=== PATIENT | female | born 1955 | race Caucasian/White ===

== ENCOUNTER → 2024-06-10 16:01 | Outpatient (REF) | payer MEDICARE, SELFPAY | LOC: RAD 16:01 | PROVIDERS: ATTENDING PHYSICIAN Orthopaedic Surgery Hand Surgery; FAMILY PHYSICIAN Internal Medicine | DX: M19.011 Primary osteoarthritis, right shoulder (principal) | CPT/HCPCS: 73200 ==

== ENCOUNTER 2024-07-01 06:06 | Inpatient (IN) | payer MEDICARE, SELFPAY ==
[2024-06-15 14:40] VITALS: BMI 48.2
[2024-06-15 15:13] LABS: Hematocrit 37.7 % (37.0-47.0); Hemoglobin 13.1 g/dL (12.0-16.0); Mean Corp Hgb Conc. 34.7 g/dL (33.0-37.0); Mean Corpuscular Hgb 30.3 pg (27.0-31.0); Mean Corpuscular Volume 87.3 fL (81.0-99.0); Mean Platelet Volume 9.3 fL (7.4-10.4); Platelet Count 221 10^3/uL (130-400); Red Blood Cell Count 4.32 10^6/uL (4.20-5.40); Red Cell Dist. Width 14.2 % (11.5-14.5); White Blood Cell Count 8.5 10^3/uL (4.8-10.8)
[2024-06-15 15:56] LABS: ALT (SGPT) 22 U/L (0-35); AST (SGOT) 24 U/L (14-36); Albumin 4.4 g/dl (3.5-5.0); Alkaline Phosphatase 67 U/L (38-126); Blood Urea Nitrogen 16 mg/dl (7-17); Calcium 9.5 mg/dl (8.4-10.2); Carbon Dioxide 20 mmol/L (22-30); Chloride 106 mmol/L (98-107); Estimated Creatinine Clearance 70 ml/min; Glucose 90 mg/dl (70-99); Potassium 4.4 mmol/L (3.5-5.1); Sodium 141 mmol/L (135-145); Total Bilirubin 0.6 mg/dl (0.2-1.3); Total Protein 6.9 g/dl (6.3-8.2); eGFR > 60.00
[2024-06-25 10:47] VITALS: BMI 48.2
[2024-06-25 11:13] VITALS: BMI 48.2
[2024-07-01] VITALS (18 sets, daily range): BP systolic 108–161; BP diastolic 60–93; BMI 48.2
[2024-07-01 06:41] LABS: Glucose - Point of Care 112 mg/dl (70-99)
[2024-07-01] MEDS: TYLENOL 1000 MG PO (06:50)
[2024-07-01] MEDS: NORMOSOL-R/PLASMALYTE-A 1000 IV (06:51)
[2024-07-01] MEDS: TYLENOL 650 MG PO ×2 (11:31→15:18)
[2024-07-01] MEDS: NORMOSOL-R/PLASMALYTE-A IV (11:34)
[2024-07-01] MEDS: NSS 1000 IV (12:13)
--- NOTE | 2024-07-01 12:43 | PTCARENOTE ---
Report called to floor once at 1200 and again at 1230. Nurse unavailable to take report. Will call again at 1245. Will monitor patient.
--- NOTE | 2024-07-01 13:07 | W.PN.UPDATE ---
Update Note
Progress Note Update
R shoulder OA s/p R Reverse TSA w/ Dr Davis 07/01/24
DVT prophylaxis - ASA, b/l venous foot pumps
HTN - + parameters - monitor BP
Hypertrophic CM, pEF - will decrease hourly IVF rate to avoid fluid overload
H/o GI ulcers - No NSAIDs
- Start Protonix
Solitary kidney s/p R nephrectomy for Renal CA 1989 - minimize nephrotoxins
Neuropathy - consider Gabapentin or Lyrica
Hypercholesterolemia
Mild-mod MR
Ascending aortic aneurysm
H/o H Pylori
Multinodular goiter
Osteoporosis
Anxiety
Depression
--- NOTE | 2024-07-01 13:11 | PTCARENOTE ---
Pt arrived to [facility] from PACU/SDS s/p R reverse TSA. Pt AAOx3, IVF infusing, NV intact with mild sensation loss due to local block. R shoulder dressing with small amount of drainage. Pt states no pain at this time. Oriented to room and call modi,
call modi within reach, bed locked and in lowest position.
[2024-07-01] MEDS: PROTONIX PO (13:32)
[2024-07-01] MEDS: ANCEF 5 IV ×2 (15:17→23:11)
[2024-07-01] MEDS: ASPIRIN 325 MG PO (17:01)
[2024-07-01] MEDS: BACTROBAN 2% OINTMENT 1 APPLIC NASAL (20:49)
[2024-07-01] MEDS: CRESTOR 20 MG PO (20:50)
[2024-07-01] MEDS: TOPROL XL PO (20:53)
[2024-07-01] MEDS: TYLENOL PO ×2 (21:07→23:16)
[2024-07-01] MEDS: MELATONIN 5 MG PO (23:45)
[2024-07-01] MEDS: DESENEX/MITRAZOL/ZEASORB 1 APPLIC TOPICAL (23:53)
[2024-07-02 03:20] VITALS: BP 151/81
[2024-07-02] MEDS: TYLENOL PO (04:59)
[2024-07-02 07:05] VITALS: BP 107/61
[2024-07-02] MEDS: TYLENOL 650 MG PO ×2 (07:50→11:15)
[2024-07-02] MEDS: ROXICODONE 5 MG PO (07:50)
[2024-07-02] MEDS: PROTONIX 40 MG PO (07:50)
[2024-07-02] MEDS: ASPIRIN 325 MG PO (07:50)
[2024-07-02] MEDS: TOPROL XL 50 MG PO (07:53)
[2024-07-02] MEDS: BACTROBAN 2% OINTMENT 1 APPLIC NASAL (07:53)
[2024-07-02] MEDS: DESENEX/MITRAZOL/ZEASORB 1 APPLIC TOPICAL (07:55)
--- NOTE | 2024-07-02 10:22 | CM ---
Met with pt and her at bedside
Pt lives in a condo in a [place] community; elevator access, no steps to enter
Requires assist at baseline with ADL's, ambulates short distances without device, uses electric WC. and daughter are care-takers
DME - shower chair, shower rails, toilet rails, electric wheel chair
SNF/HH - denies past hx
Has ride home with
PCP - Santa Yap
Pharm - [facility]
Discussed IMM
Plan - anticipate home no needs when medically ready
[2024-07-02 10:59] VITALS: BP 144/74
[2024-07-02 11:00] VITALS: BP 126/62
--- NOTE | 2024-07-02 11:38 | W.PN.ORTHO ---
Today's Communication / Plan
-
D/c today since clinically stable, did well w/ OT despite high levels of pain reported (subjectively, appears comfortable).
Assessment
.
Distal Motor Intact: Yes
Dressing:
Scant areas of old incisional bleeding.
Assessment:
R shoulder OA s/p R Reverse KARY w/ Dr Davis 07/01/24
DVT prophylaxis - ASA 81 mg PO BID, b/l venous foot pumps
Post-op pain - per pt preference, will Rx Lidoderm patches and Prednisone taper
- NO NSAIDs given PMHx
- Decline Gabapentin at this time
- Did advise she take 10 mg over 5 mg of Oxycodone for first few days q6hprn; pt agreeable.
HTN - + parameters - BPs overall stable
Hypertrophic CM, pEF - did decrease hourly IVF rate to avoid fluid overload
H/o GI ulcers - No NSAIDs
- Start Protonix while inpatient
Solitary kidney s/p R nephrectomy for Renal CA 1989 - continue minimize nephrotoxins
Documented neuropathy - Gabapentin declined
Hypercholesterolemia
Mild-mod MR
Ascending aortic aneurysm
H/o H Pylori
Multinodular goiter
Osteoporosis
Anxiety
Depression
Plan
.
Surgery / Date: R Reverse KARY w/ Dr Davis 07/01/24
DVT Prophylaxis: Aspirin (81 mg PO BID )
Activity:
Out of bed.
PT/OT
Discharge Plan: Home
Subjective
.
.:
Patient examined resting in her chair.
Significant L shoulder pain after OT today - pain meds discussed and adjusted.
Denies any other new significant complaints.
Eager for potential d/c today.
Vital Signs and Labs
.
Vital Signs and Labs:
Lab Results
06/15/24 14:39
06/15/24 14:38
Temp Pulse Resp BP Pulse Ox
97.8 F 73 16 107/61 97
07/02/24 07:05 07/02/24 07:53 07/02/24 07:05 07/02/24 07:53 07/02/24 08:00
Non-invasive Hgb result: 13.8
Physical Exam
-
HEENT: No pallor, cyanosis, or jaundice. Throat clear.
NECK: Supple. No JVD.
RESPIRATORY: Lungs clear to auscultation.
CVS: S1, S2 normal. RRR.�
ABDOMEN: Soft, non-tender. No distension. Morbidly obese.
EXTREMITIES: + LUE sling. Able to wiggle fingers b/l. 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 Strength equal, no calf pain with palpation/dorsiflexion. Calves soft.
LEASING REPRESENTATIVE: AOx3. No focal deficits. fibreglass gun hand grossly intact
--- NOTE | 2024-07-02 11:56 | W.DS.TRANS ---
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
-
Discharge Instructions:
Sleep Apnea Risk Intermediate
Discharge Diagnosis/Procedures R shoulder OA s/p R Reverse TSA w/ Dr Davis 10
Diet Regular
Activity As tolerated
Additional Activity Non-weightbearing right upper extremity
Driving Restrictions Not until seen by your Dr
Bathing Restrictions OK to shower in 72 hours
Instructions:
Stand-Alone Forms: Total Shoulder Replacement D/C
Changes to Home Medications: Yes
Discharge Medications:
DC Medications w/original date entered in [employer]
magnesium 250 mg tablet 500 mg PO HS 06/25/24
metoprolol succinate 50 mg tablet,extended release 24 hr (Toprol XL) 50 mg PO BID 06/25/24
mupirocin 2 % topical ointment 1 applic topical BID 06/25/24
rosuvastatin 20 mg tablet (Crestor) 20 mg PO HS 06/25/24
tirzepatide 15 mg/0.5 mL subcutaneous pen injector (Mounjaro) 15 mg SC QWEEK 07/01/24
Saccharomyces boulardii 250 mg capsule (Florastor) 250 mg PO BID #6 caps 07/02/24
acetaminophen 500 mg tablet (Tylenol Extra Strength) 1,000 mg (2 x 500 mg) PO Q6H #60 tabs 07/02/24
aspirin 81 mg chewable tablet 81 mg PO BID Blood clot prevention/tx #60 tabs 07/02/24
docusate sodium 100 mg capsule 100 mg PO BID #30 caps 07/02/24
doxycycline monohydrate 100 mg capsule 100 mg PO BID #6 caps 07/02/24
ferrous sulfate 325 mg (65 mg iron) tablet (FeroSul) 325 mg PO DAILY #30 tabs 07/02/24
lidocaine 4 % topical patch 2 patch topical DAILY #30 ea 07/02/24
ondansetron HCl 4 mg tablet 4 mg PO Q6H PRN nausea and vomiting #30 tabs 07/02/24
oxycodone 5 mg tablet 5 - 10 mg (1 - 2 x 5 mg) PO Q6H PRN moderate-severe pain #30 tabs 07/02/24
pantoprazole 40 mg tablet,delayed release 40 mg PO DAILY #30 tabs 07/02/24
prednisone 10 mg tablet 40 mg (4 x 10 mg) PO TAPER #20 tabs 07/02/24
sennosides 8.6 mg tablet (Senna Laxative) 17.2 mg (2 x 8.6 mg) PO BID #30 tabs 07/02/24
Home Medication Changes
Saccharomyces boulardii 250 mg capsule (Florastor) 250 mg PO BID #6 caps 07/02/24
acetaminophen 500 mg tablet (Tylenol Extra Strength) 1,000 mg (2 x 500 mg) PO Q6H #60 tabs 07/02/24
aspirin 81 mg chewable tablet 81 mg PO BID Blood clot prevention/tx #60 tabs 07/02/24
docusate sodium 100 mg capsule 100 mg PO BID #30 caps 07/02/24
doxycycline monohydrate 100 mg capsule 100 mg PO BID #6 caps 07/02/24
ferrous sulfate 325 mg (65 mg iron) tablet (FeroSul) 325 mg PO DAILY #30 tabs 07/02/24
lidocaine 4 % topical patch 2 patch topical DAILY #30 ea 07/02/24
ondansetron HCl 4 mg tablet 4 mg PO Q6H PRN nausea and vomiting #30 tabs 07/02/24
oxycodone 5 mg tablet 5 - 10 mg (1 - 2 x 5 mg) PO Q6H PRN moderate-severe pain #30 tabs 07/02/24
pantoprazole 40 mg tablet,delayed release 40 mg PO DAILY #30 tabs 07/02/24
prednisone 10 mg tablet 40 mg (4 x 10 mg) PO TAPER #20 tabs 07/02/24
sennosides 8.6 mg tablet (Senna Laxative) 17.2 mg (2 x 8.6 mg) PO BID #30 tabs 07/02/24
Pending Results: No
[2024-07-02] MEDS: LIDOCAINE 4% PATCH 2 PATCH TOPICAL (12:17)
[2024-07-02] MEDS: DELTASONE 40 MG PO (12:17)
[2024-07-02] MEDS: ROXICODONE 10 MG PO (12:17)
== END 2024-07-02 13:38 | disposition home or self-care (01) | DRG 483 ==
LOC: 2 SOUTH 06:06
PROVIDERS: ADMITTING PHYSICIAN Orthopaedic Surgery Hand Surgery; FAMILY PHYSICIAN Internal Medicine; REFERRING PHYSICIAN Internal Medicine Cardiovascular Disease
PROC: 0RRJ00Z Replacement of Right Shoulder Joint with Reverse Ball and Socket Synthetic Substitute, Open Approach (ICD-10-PCS; 2024-07-01)
DX: M19.011 Primary osteoarthritis, right shoulder (principal); I42.2 Other hypertrophic cardiomyopathy; I10 Essential (primary) hypertension; M75.101 Unspecified rotator cuff tear or rupture of right shoulder, not specified as traumatic; M25.511 Pain in right shoulder; E78.5 Hyperlipidemia, unspecified; Z79.82 Long term (current) use of aspirin; Z79.899 Other long term (current) drug therapy; Z87.11 Personal history of peptic ulcer disease; Z85.528 Personal history of other malignant neoplasm of kidney; Z90.5 Acquired absence of kidney
CPT/HCPCS: 36415; 73020; 80053; 82962; 83036; 85027; 87070; 97110; 97167; 97535; C1713; C1776

== ENCOUNTER 2024-07-16 10:33 | Emergency (ER) | payer MEDICARE, SELFPAY ==
[2024-07-16 10:45] VITALS: BP 128/60
[2024-07-16 11:19] VITALS: BP 143/73
--- NOTE | 2024-07-16 11:22 | ED.GENMED ---
History of Present Illness
General
Chief Complaint: Swelling
Source: patient
Exam Limitations: none
Time Seen by Provider: 07/16/24 11:10
History of Present Illness
History of Present Illness:
69-year-old female presents complaining of swelling and discomfort to the bilateral lower extremities starting about 10 to 12 days ago. 2 days prior to the onset of her discomfort she had a right total shoulder replacement. She denies chest pain
or any new onset shortness of breath. She is on a baby aspirin. She tells me she is followed by borematic machine operator for history of cardiomyopathy and the borematic machine operator sent her in for evaluation of DVT.
Phy Exam
Physical Exam
Physical Exam:
General: Well-appearing female no acute respiratory distress
HEENT: Normocephalic atraumatic
Heart: Regular rate and rhythm no murmurs
Lungs: Clear no wheeze
Extremities: No cyanosis mild edema bilateral lower extremities
Vascular: 2+ dosralis pedis pulse bilateral feet
Scores
Heart Failure Risk
Heart Failure Risk Score: Not Applicable
Course
Orders/Labs/Results
Orders:
Orders
07/16/24 11:19
Venous Doppler Lwr Ext Bilat [US Periph Venous LOWER Ext Darell] Urgent
Comment:
Reason For Exam: swelling/ pain
Vital Signs
Initial and Last Documented VS:
Initial Vital Signs
Temp Pulse Resp BP Pulse Ox
98.2 F 95 16 128/60 98
07/16/24 10:45 07/16/24 10:45 07/16/24 10:45 07/16/24 10:45 07/16/24 10:45
Last Documented Vital Signs
Temp Pulse Resp BP Pulse Ox
98.2 F 72 20 143/73 95
07/16/24 10:45 07/16/24 11:28 07/16/24 11:28 07/16/24 11:28 07/16/24 11:28
MDM/Problems Addressed
Differential Diagnosis Includes:
Bilateral leg swelling and discomfort with recent shoulder surgery. Concern for possible DVT ultrasounds pending. No chest pain or shortness of breath to suggest PE. No prior diagnosis of CHF.
*Critical Care Note
Total Time (30-74mins, 75-104mins- exclusive of procedures): Not Applicable
Update Note
Update Note:
Bilateral venous ultrasound of the lower extremities was negative for DVT. Patient reassured. Stable for discharge
ED Attending Note
-
Portions of this chart may have been created with voice recognition software.� Occasional wrong word or��sound alike� substitutions may have occurred due to the inherent limitations of voice recognition software.
Discharge Plan
Departure
Patient Disposition: Home (Routine Discharge)
Date of Disposition: 07/16/24
Time of Disposition: 12:40
Patient with high blood pressure during this ER visit?: No
Discharge Problem:
Leg pain
Instructions: Dependent Edema (DC)
Prescriptions:
No Action
metoprolol succinate [Toprol XL] 50 mg Tablet Extended Release 24 Hr
50 mg PO BID
magnesium 250 mg Tablet
500 mg PO HS
rosuvastatin [Crestor] 20 mg Tablet
20 mg PO HS
mupirocin 2 % Ointment
1 applic TOPICAL BID
Patient Comments:
started treatment saturday06/28/24 and completed BID
Mounjaro 15 mg/0.5 mL Pen Injector
15 mg SC QWEEK
ferrous sulfate [FeroSul] 325 mg (65 mg iron) Tablet
325 mg PO DAILY Qty: 30 0RF
Rx Instructions:
Over the counter.
docusate sodium 100 mg Capsule
100 mg PO BID Qty: 30 0RF
lidocaine 4 % Adhesive Patch,Medicated
2 patch topical DAILY Qty: 30 0RF
Rx Instructions:
Over the counter. 12 hours on, 12 hours off.
Apply to sides of right shoulder.
pantoprazole 40 mg Tablet,Delayed Release (Dr/Ec)
40 mg PO DAILY Qty: 30 0RF
Rx Instructions:
Take daily while on post-surgical pain meds to reduce GI upset.
oxycodone 5 mg Tablet
5 - 10 mg PO Q6H PRN (Reason: moderate-severe pain) Qty: 30 0RF
Rx Instructions:
1 tab for moderate pain, 2 if severe.
Dx total joint
sennosides [Senna Laxative] 8.6 mg Tablet
17.2 mg PO BID Qty: 30 0RF
acetaminophen [Tylenol Extra Strength] 500 mg tablet
1,000 mg PO Q6H Qty: 60 0RF
Rx Instructions:
DO NOT exceed >4000 mg daily.
aspirin 81 mg tablet,chewable
81 mg PO BID Qty: 60 0RF
Rx Instructions:
Start tomorrow AM and take twice a day for 4 weeks post-surgery.
Take with food.
ondansetron HCl 4 mg tablet
4 mg PO Q6H PRN (Reason: nausea and vomiting) Qty: 30 0RF
Rx Instructions:
Prescribed by surgeon's office pre-op
prednisone 10 mg tablet
40 mg PO TAPER Qty: 20 0RF
Rx Instructions:
4 TABS X 2 DAYS, 3 TABS X 2 DAYS, 2 TABS X 2 DAYS, 1 TAB X 2 DAYS, THEN STOP
doxycycline monohydrate 100 mg capsule
100 mg PO BID Qty: 6 0RF
Rx Instructions:
Start night of discharge and continue twice daily until finished.
Saccharomyces boulardii [Florastor] 250 mg capsule
250 mg PO BID Qty: 6 0RF
Rx Instructions:
Over the counter. Take while on antibiotic.
If unavailable, choose a different probiotic.
Referrals:
Santa Yap MD [Family Provider] -
Activity Restrictions/Additional Instructions:
Elevate for swelling. Ambulate as tolerated. Return if worse otherwise follow-up with your doctor.
Interventions
Interventions:
*Risk Screen - Suicide Last Done: 07/16/24 10:45
*Neglect/Abuse Screening Last Done: 07/16/24 10:45
ED- Fall Risk Assessment Last Done: 07/16/24 11:17
ED- Cardiac Assessment Last Done: 07/16/24 11:17
ED- Pulmonary Assessment Last Done: 07/16/24 11:17
ED-Skin Assessment Last Done: 07/16/24 11:17
Discharge Date and Time
Print Language: ARABIC
[2024-07-16 11:26] VITALS: BMI 46.6
[2024-07-16 11:28] VITALS: BP 143/73
[2024-07-16 12:42] VITALS: BP 129/69
== END 2024-07-16 13:12 | disposition home or self-care (01) ==
LOC: EMR 10:33
PROVIDERS: EMERGENCY PHYSICIAN Emergency Medicine; FAMILY PHYSICIAN Internal Medicine
DX: M79.605 Pain in left leg (principal); M79.604 Pain in right leg; Z96.611 Presence of right artificial shoulder joint
CPT/HCPCS: 99284; 93970

== ENCOUNTER → 2024-11-10 12:38 | Outpatient (REF) | payer OTHER, SELFPAY | LOC: MRI 3T 12:38 | PROVIDERS: ATTENDING PHYSICIAN Orthopaedic Surgery Hand Surgery; FAMILY PHYSICIAN Internal Medicine | DX: M25.531 Pain in right wrist (principal) | CPT/HCPCS: 73221 ==